=== PATIENT | male | born 1995 | race Two or more races ===

== ENCOUNTER 2025-01-07 23:37 | Emergency (ER) | payer MEDICAID, SELFPAY ==
[2025-01-07 23:38] VITALS: BMI 30.7
[2025-01-08 00:24] VITALS: BP 119/80; PULSE 75; RESP 18; TEMP 36.9; O2SAT 97
[2025-01-08] MEDS: TRIMETHOPRIM/SULFA 160/800 DS TABLET 1 TAB PO (00:55)
--- NOTE | 2025-01-08 05:36 | PD.EDANKLE ---
Lower Extremity Injury RME/HPI General Chief Complaint: Ankle/Foot Injury Stated Complaint: LEFT GREAT TOENAIL INFECTED Time Seen by Provider: 01/08/25 00:42 Arrival date/time: 01/07/25 23:37 29M with no significant PMH presents to ED with 3 weeks of L big toe pain. Patient saw PCP who gave Keflex w/o relief. Limitations: no limitations Related Data Previous Rx's ?Medication ?Instructions ?Recorded sulfamethoxazole 800 1 tab PO BID 7 days #14 tabs 01/08/25 mg-trimethoprim 160 mg tablet (Bactrim DS) Allergies Allergy/AdvReac Type Severity Reaction Status Date / Time No Known Allergies Allergy Verified 01/07/25 23:38 Review of Systems Review of Systems Systems Reviewed: All systems reviewed, normal except as documented Constitutional Constitutional: Reports system reviewed and no additional complaints, except as documented, Denies fever(s) and Denies headache(s) ENT Ears, Nose, Mouth, and Throat: Denies disequilibrium and Denies headache(s) Cardiovascular Cardiovascular: Reports system reviewed and no additional complaints, except as documented, Denies chest pain and Denies dyspnea Respiratory Respiratory: Reports system reviewed and no additional complaints, except as documented, Denies cough and Denies dyspnea Gastrointestinal Gastrointestinal: Reports system reviewed and no additional complaints, except as documented, Denies abdominal pain, Denies nausea and Denies vomiting Integumentary/Breasts Skin/Breast: Reports as per HPI and Reports skin pain Neurologic Neurologic: Reports system reviewed and no additional complaints, except as documented, Denies confusion, Denies disequilibrium and Denies headache(s) Psychiatric Psychiatric: Denies confusion Past Medical History Past Medical History CARDIAC: Negative Cardiac Disorders or Congestive Heart Failure RESPIRATORY: Negative Chronic Obstructive Pulmonary Disease (COPD) or Asthma GENITOURINARY: Negative Renal Disease ENDOCRINE: Negative Diabetes Mellitus Type 1 or Diabetes Mellitus Type 2 HEMATOLOGIC: Negative Sickle Cell Disease Social History SMOKING STATUS: Never smoker SUBSTANCE USE: does not use ED Exam General Limitations: Present no limitations General appearance: Present alert and in no apparent distress Head Head exam: Present atraumatic Eye Eye exam: Present normal appearance, PERRL and EOMI ENT ENT exam: Present normal exam, normal oropharynx and mucous membranes moist Neck Neck exam: Present normal inspection, full ROM and trachea midline Chest Chest inspection: Present normal inspection and symmetric chest wall rise Respiratory Respiratory exam: Present normal lung sounds bilaterally Cardiovascular Cardiovascular exam: Present regular rate, normal rhythm and normal heart sounds Abdominal Exam Abdominal exam: Present soft and normal bowel sounds Extremities Exam Extremities exam: Present full ROM Expanded Lower Extremity Exam Foot/toe exam: Present full ROM (skin around L big toenail), swelling and erythema Back Exam Back exam: Present normal inspection and full ROM Neurological Exam Neurological exam: Present alert, oriented X3 and CN II-XII intact Psychiatric Psychiatric exam: Present normal affect and normal mood Skin Skin exam: Present warm, dry, intact and normal color Course Quality Measures none Orders Category Date Time Status Trimethoprim/Sulfa 160/800 Ds [Bactrim Ds] Med 01/08/25 00:43 Discontinued 1 tab PO X1 ONE Vital Signs Vital signs: Vital Signs Temperature 98.4 F 01/08/25 00:24 Pulse Rate 75 01/08/25 00:24 Respiratory Rate 18 01/08/25 00:24 Blood Pressure 119/80 01/08/25 00:24 Pulse Oximetry (%) 97 01/08/25 00:24 Oxygen Delivery Method Room Air 01/08/25 00:24 O2 at 97% on RA and WNLs Extremity Injury, Lower MDM Narrative MDM Narrative:: 29M with no significant PMH presents to ED with 3 weeks of L big toe pain. Patient saw PCP who gave Keflex w/o relief. Physical exam reveals L big toenail that is ingrown. Some swelling and redness around toenail. Patient is afebrile, calm, and alert. Meds and licensed professional counselor given. Patient data External records reviewed:: [facility] previous records Clinical information provided by:: patient Social determinants that could affect healthcare access:: none Patient has the following chronic illnesses:: none How is presenting disease/condition affected by chronic disease/condition?: no chronic disease Evaluation data The following diagnostics were reviewed and interpreted by me:: other (specify) (none) Lab and/or radiology exams considered but not ordered:: not ordered Interpretation Summary: n/a Medications / Prescriptions Medications or Prescriptions considered but not ordered:: ordered Medication administrations:: Medication Administration History Discontinued Medications Trimethoprim/Sulfamethoxazole (Trimethoprim/Sulfa 160/800 Ds Tablet) 1 tab PO X1 ONE Stop: 01/08/25 00:44 Last Admin: 01/08/25 00:55 Dose: 1 tab Documented By: CB above Consultations Consultation(s) initiated? (list below): No Diagnosis Extremity Injury, Lower Differential Diagnosis: ankle sprain and strain, acute internal derangement of knee, puncture wound of foot, fracture of toe, ankle fracture and other (infected ingrown toenail) Most likely diagnosis given after review of the tests above:: infected ingrown toenail Admission Indicated Admission indicated?: not indicated Admission Request Was there a request for admission?: No Disposition Plan Disposition Plan: Discharge Discharge Attestation Discharge Attestation: The patient and all family members were given an opportunity to ask questions and understood the discharge instructions. Discharge instructions specifically effects, indications for sooner follow up or return to the emergency department, and the expected course of current diagnosis. Patient condition: Stable Discharge Plan Plan Patient Disposition: HOME (Self Care) Discharge Disposition comment: Stable Prescriptions/Referrals Prescriptions/Med Rec: New sulfamethoxazole-trimethoprim [Bactrim DS] 800-160 mg tablet 1 tab PO BID 7 Days Qty: 14 0RF Problem List Clinical Impression: Ingrowing toenail with infection Patient/Caregiver Discharge Instructions Education Materials: ED Toenail Ingrown Infec Abx Onl Additional Instructions: Please follow-up with PCP within 24-48 hours and return immediately if symptoms worsen. See analysis evaluator for toenail fix. Print Language: Vietnamese Stand Alone Forms: Work/School Release, Patient Portal Info Letter ENRIQUE/REYNA Supervising Physician ENRIQUE/REYNA Supervising Physician: Dr. Lopez
== END 2025-01-08 01:33 | disposition home or self-care (01) ==
PROVIDERS: Emergency Provider Emergency Medicine
DX: L60.0 Ingrowing nail (principal)
CPT/HCPCS: 99282; A9270